=== PATIENT | female | born 1995 | race Caucasian/White ===

== ENCOUNTER 2020-12-05 12:50 | Emergency (ER) | payer SELFPAY ==
[~2020-12-05] VITALS: Ht 167.6 cm; Wt 50.0 kg
[2020-12-05 13:00] VITALS: BP 120/75
[2020-12-05] MEDS ORDERED: SODIUM CHLORIDE 0.9% 1,000 ML IV ONE (13:15)
== END 2020-12-05 18:24 | disposition left against medical advice (07) ==
LOC: ER 16:14
DX: R53.1 Weakness (principal); Z53.21 Procedure and treatment not carried out due to patient leaving prior to being seen by health care provider
CPT/HCPCS: 93005; J7030